=== PATIENT | female | born 1995 | race Caucasian/White ===

== ENCOUNTER 2019-05-20 21:33 | Emergency (ER) | payer OTHER, SELFPAY ==
[2019-05-20 22:54] LABS: Absolute Lymphocytes (CBC) 1.9 K/uL (0.7-4.9); Basophils % 0.5 % (0-1.3); Eosinophils % 0.2 % (0-4.4); Hematocrit 39.7 % (36.0-45.0); Lymphocytes % 16.9 % (15.3-44.8); MPV 8.6 fL (7.6-11.3); Monocytes % 5.1 % (3.3-12.3); RBC Red Blood Cell Count 5.08 M/uL (3.86-4.86)
[2019-05-20 23:06] LABS: Protime INR 1.19
[2019-05-20 23:21] LABS: ALT/SGPT 18 U/L (12-78); AST/SGOT 13 U/L (15-37); Albumin 3.9 g/dL (3.4-5.0); Alkaline Phosphatase 69 U/L (45-117); BUN Blood Urea Nitrogen 14 mg/dL (7-18); Bicarbonate 24 mmol/L (21-32); Bilirubin Direct 0.1 mg/dL (0-0.2); Bilirubin Total 0.4 mg/dL (0.2-1.0); Glucose Level 102 mg/dL (74-106); Potassium 3.3 mmol/L (3.5-5.1); Protein, Total 8.4 g/dL (6.4-8.2); Sodium Level 141 mmol/L (136-145)
[2019-05-20 23:58] LABS: Urine Blood 2+ (NEG); Urine Glucose NEGATIVE (NEG); Urine Protein 1+ (NEG); Urine Specific Gravity >1.030 (1.005-1.030)
[2019-05-21 00:09] LABS: Barbiturates NEGATIVE (NEGATIVE); Benzodiazepines NEGATIVE (NEGATIVE); Cocaine NEGATIVE (NEGATIVE); METHAMPHETAM NEGATIVE (NEGATIVE); Methadone NEGATIVE (NEGATIVE); Opiates NEGATIVE (NEGATIVE); Phencyclidine NEGATIVE (NEGATIVE); THC Cannibis NEGATIVE (NEGATIVE)
--- NOTE | 2019-05-21 01:14 | EDPHYS ---
Physician Documentation [facility] Name: Rebecca Kirby Age: 23 yrs Sex: Female : 1995 Arrival Date: 05/20/2019 Time: 21:37 Bed 18 Private MD: Mckinley Haider M ED Physician Malcolm Brown HPI: 05/20 22:05 This 23 yrs old Female presents to ER via Ambulatory with complaints of pm1 Depression, Anxiety, Suicidal Ideation. 22:05 The patient presents to the emergency department with anxiety, depression, suicide pm1 ideation, and the patient has a plan, to jump from a height into water. Onset: The symptoms/episode began/occurred 3 month(s) ago, and became worse 3 day(s) ago. Past psychiatric history: Psychiatric medications include: none, the patient has had a prior suicide gesture, where the patient took pills/meds, about three months ago in an attempt to harm/kill herself, the patient does not have a previous inpatient psychiatric history. Associated signs and symptoms: Pertinent positives; anxiety, depression, suicide ideation, Pertinent negatives: abdominal pain, chest pain, hallucinations, homicidal ideation, paranoia, shortness of breath, substance abuse. Severity of symptoms: in the emergency department the symptoms are worse. The patient has not recently seen a physician. Patient with suicidal ideation and plan to jump of a bridge into water and she does not know how to swim. 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 - Social history:: Smoking status: Patient/guardian denies using tobacco. - Ebola Screening: : Patient denies travel to an Ebola-affected area in the 21 days before illness onset. ROS: 22:05 Constitutional: Negative for fever, chills, and weight loss, Eyes: Negative for injury, pm1 pain, redness, and discharge, ENT: Negative for injury, pain, and discharge, Neck: Negative for injury, pain, and swelling, Cardiovascular: Negative for chest pain, palpitations, and edema, Respiratory: Negative for shortness of breath, cough, wheezing, and pleuritic chest pain, Abdomen/GI: Negative for abdominal pain, nausea, vomiting, diarrhea, and constipation, Back: Negative for injury and pain, : Negative for injury, bleeding, discharge, and swelling, MS/Extremity: Negative for injury and deformity, Skin: Negative for injury, rash, and discoloration, Neuro: Negative for headache, weakness, numbness, tingling, and seizure. 22:05 Psych: Positive for anxiety, depression, suicidal ideation, Negative for drug dependence, alcohol dependence, auditory hallucinations, visual hallucinations, homicidal ideation. Exam: 22:05 Constitutional: This is a well developed, well nourished patient who is awake, alert, pm1 and in no acute distress. Head/Face: Normocephalic, atraumatic. Eyes: Pupils equal round and reactive to light, extra-ocular motions intact. Lids and lashes normal. Conjunctiva and sclera are non-icteric and not injected. Cornea within normal limits. Periorbital areas with no swelling, redness, or edema. ENT: Nares patent. No nasal discharge, no septal abnormalities noted. Tympanic membranes are normal and external auditory canals are clear. Oropharynx with no redness, swelling, or masses, exudates, or evidence of obstruction, uvula midline. Mucous membranes moist. Neck: Trachea midline, no thyromegaly or masses palpated, and no cervical lymphadenopathy. Supple, full range of motion without nuchal rigidity, or vertebral point tenderness. No Meningismus. Chest/axilla: Normal chest wall appearance and motion. Nontender with no deformity. No lesions are appreciated. Cardiovascular: Regular rate and rhythm with a normal S1 and S2. No gallops, murmurs, or rubs. Normal PMI, no JVD. No pulse deficits. Respiratory: Lungs have equal breath sounds bilaterally, clear to auscultation and percussion. No rales, rhonchi or wheezes noted. No increased work of breathing, no retractions or nasal flaring. Abdomen/GI: Soft, non-tender, with normal bowel sounds. No distension or tympany. No guarding or rebound. No evidence of tenderness throughout. Back: No spinal tenderness. No costovertebral tenderness. Full range of motion. Skin: Warm, dry with normal turgor. Normal color with no rashes, no lesions, and no evidence of cellulitis. MS/ Extremity: Pulses equal, no cyanosis. Neurovascular intact. Full, normal range of motion. 22:05 Neuro: Orientation: is normal, Motor: is normal, moves all fours, Gait: is steady, at a normal pace, without difficulty. 22:05 Psych: Behavior/mood is depressed, Affect is flat, Oriented to person, place, time, Delusions/hallucinations are not present. Vital Signs: 21:47 BP 150 / 82; Pulse 108; Resp 20; Temp 98.2; Pulse Ox 98% on R/A; Height 5 ft. 9 in. aj1 (175.26 cm) (R); Pain 0/10; 05/21 01:21 BP 130 / 75; Pulse 98; Resp 18; Temp 98.7; Pulse Ox 97% ; Pain 0/10; cm6 03:47 BP 117 / 67; Pulse 84; Resp 18; Temp 98.3; Pulse Ox 99% ; Pain 0/10; cm6 07:47 BP 125 / 66; Pulse 90; Resp 18; Temp 98.2(O); Pulse Ox 100% on R/A; mh5 11:50 BP 123 / 69; Pulse 76; Resp 18; Temp 98.0(O); Pulse Ox 99% on R/A; mh5 MDM: 05/20 21:53 Patient medically screened. pm1 23:23 Data reviewed: vital signs. Data interpreted: Pulse oximetry: on room air is 98 %. pm1 Interpretation: normal. 05/21 00:56 ED course: [facility] present to evaluate patient. pm1 01:12 Counseling: I had a detailed discussion with the patient and/or guardian regarding: the pm1 historical points, exam findings, and any diagnostic results supporting the discharge/admit diagnosis, lab results, the need to transfer to another facility, [facility] does not immediately have the required specialist. 11:44 ED course: Talked with [facility] Psychiatric department who accepted to see patient. jr8 Doc-Doc completed. Patient remains cooperative. Still depressed and with SI. 05/20 22:02 Order name: Acetaminophen pm1 05/20 22:02 Order name: Basic Metabolic Panel pm1 05/20 22:02 Order name: CBC with Diff; Complete Time: 23:17 pm05/20 22:02 Order name: ETOH Level; Complete Time: 23:17 pm05/20 22:02 Order name: Hepatic Function 05/20 22:02 Order name: PT-INR; Complete Time: 23:17 pm05/20 22:02 Order name: Ptt, Activated; Complete Time: 23:17 pm05/20 22:02 Order name: Salicylate; Complete Time: 00:31 pm05/20 22:02 Order name: Urine Drug Screen; Complete Time: 00:31 pm05/20 22:03 Order name: Acetaminophen Level; Complete Time: 23:35 EDMS 05/20 22:03 Order name: Basic Metabolic Panel; Complete Time: 23:35 EDMS 05/20 22:03 Order name: Liver (Hepatic) Function; Complete Time: 23:35 EDMS 05/20 23:56 Order name: Urine Dipstick--Ancillary (enter results) 05/20 23:56 Order name: Urine --Ancillary (enter results); Complete Time: 00:31 [facility] 05/20 22:02 Order name: Urine Test (obtain specimen); Complete Time: 00:23 pm05/20 22:02 Order name: EKG; Complete Time: 22:04 pm05/20 22:02 Order name: EKG - Nurse/Tech; Complete Time: 22:51 pm05/20 22:02 Order name: IV Saline Lock; Complete Time: 22:51 pm05/20 22:02 Order name: Labs collected and sent; Complete Time: 22:51 pm05/20 22:02 Order name: Urine Dipstick-Ancillary (obtain specimen); Complete Time: 00:23 pm05/20 23:56 Order name: Urine Dipstick-Ancillary; Complete Time: 00:31 EDMS 05/21 06:14 Order name: Diet Regular; Complete Time: 06:15 jd3 05/21 09:48 Order name: Diet Regular; Complete Time: 09:50 mh5 Administered Medications: 12:00 Drug: Potassium Chloride 20 mEq Route: PO; bp 12:07 Follow up: Response: No adverse reaction bp Disposition: 05/21/19 01:13 Transfer ordered to [facility]. Diagnosis is Suicidal ideations. - Reason for transfer: Higher level of care. - Accepting physician is Dr. Atwood. - Condition is Stable. - Problem is new. - Symptoms have improved. Signatures: Dispatcher [employer] EDMS Jessica Sebastian RN RN aj1 Sancho Mann PA PA jr8 Riccardo Ontiveros, TRANSPORT COORDINATOR TRANSPORT COORDINATOR pm1 Javy Romero RN RN bp Corrections: (The following items were deleted from the chart) 11:45 11:44 ED course: Talked with [facility] Psychiatric department who accepted to see jr8 patient. Doc-Doc completed . jr8 12:14 01:13 05/21/2019 01:13 Transfer ordered to Psych Facility. Diagnosis is Suicidal jr8 ideations. Reason for transfer: Higher level of care. Accepting physician is Psychiatrist. Condition is Stable. Problem is new. Symptoms have improved. pm1 13:55 12:14 05/21/2019 01:13 Transfer ordered to Psych Facility. Diagnosis is Suicidal bp ideations. Reason for transfer: Higher level of care. Accepting physician is Dr. Atwood. Condition is Stable. Problem is new. Symptoms have improved. jr8
--- NOTE | 2019-05-21 01:14 | ER ---
Nurse's Notes [facility] Name: Rebecca Kirby Age: 23 yrs Sex: Female : 1995 Arrival Date: 05/20/2019 Time: 21:37 Bed 18 Private MD: Mckinley Haider M Diagnosis: Suicidal ideations Presentation: 05/20 21:41 Presenting complaint: Patient states: "I've been having suicidal thoughts lately and I aj1 feel like acting on them. I told my mom and she told me to come here" Patient reports that she has a plan, states that she can't swim and she would jump off a bridge into deep water. Transition of care: patient was not received from another setting of care. Onset of symptoms was May 20, 2019. Risk Assessment: Do you want to hurt yourself or someone else? Patient reports desire/thoughts of hurting themselves or someone else. Provider notified. Initial Sepsis Screen: Does the patient meet any 2 criteria? No. Patient's initial sepsis screen is negative. Does the patient have a suspected source of infection? No. Patient's initial sepsis screen is negative. Care prior to arrival: None. 21:41 Method Of Arrival: Ambulatory aj1 21:41 Acuity: TRAE 2 aj1 Triage Assessment: 21:47 General: Appears in no apparent distress. uncomfortable, Behavior is calm, cooperative, aj1 appropriate for age. Pain: Denies pain. Neuro: Level of Consciousness is awake, alert, obeys commands. Cardiovascular: Patient's skin is warm and dry. Respiratory: Airway is patent Respiratory effort is even, unlabored, Respiratory pattern is regular, symmetrical. 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 - Social history:: Smoking status: Patient/guardian denies using tobacco. - Ebola Screening: : Patient denies travel to an Ebola-affected area in the 21 days before illness onset. Screenin/01 00:18 Abuse screen: Denies threats or abuse. Nutritional screening: No deficits noted. jd3 Tuberculosis screening: No symptoms or risk factors identified. Fall Risk IV access (20 points). Ambulatory Aid- None/Bed Rest/Nurse Assist (0 pts). Gait- Normal/Bed Rest/Wheelchair (0 pts) Mental Status- Oriented to own ability (0 pts). Total Multani Fall Scale indicates No Risk (0-24 pts). Assessment: 05/20 21:45 Reassessment: Patient states hx of "cutting" on wrists and thighs, last done a couple lp1 months ago; States hx of self-harm, "About 3 months ago, I tried to overdose on Benadryl, but I didn't tell anyone about it", patient stated after asking mother to step out of room. 21:50 General: Appears in no apparent distress. comfortable, Behavior is calm, cooperative, jd3 appropriate for age, Reports suicidal thoughts. Pain: Denies pain. Neuro: Level of Consciousness is awake, alert, obeys commands, Oriented to person, place, time, situation. Cardiovascular: Denies chest pain, Capillary refill < 3 seconds Patient's skin is warm and dry. Respiratory: Airway is patent Respiratory effort is even, unlabored, Respiratory pattern is regular, symmetrical, Denies shortness of breath. GI: No signs and/or symptoms were reported involving the gastrointestinal system. : No signs and/or symptoms were reported regarding the genitourinary system. EENT: No signs and/or symptoms were reported regarding the EENT system. Derm: Skin is intact, Skin is dry, Skin is normal, Skin temperature is warm. Musculoskeletal: Circulation, motion, and sensation intact. Range of motion: intact in all extremities. 22:30 Reassessment: Patient appears in no apparent distress at this time. No changes from jd3 previously documented assessment. Patient and/or family updated on plan of care and expected duration. Pain level reassessed. Patient is alert, oriented x 3, equal unlabored respirations, skin warm/dry/pink. family at bedside. 23:30 Reassessment: Patient appears in no apparent distress at this time. Patient and/or jd3 family updated on plan of care and expected duration. Pain level reassessed. Patient is alert, oriented x 3, equal unlabored respirations, skin warm/dry/pink. awaiting results. 07/01 00:18 Reassessment: Patient appears in no apparent distress at this time. Patient and/or jd3 family updated on plan of care and expected duration. Pain level reassessed. Patient is alert, oriented x 3, equal unlabored respirations, skin warm/dry/pink. belongings other than wallet and shoes sent home with family. pt resting in bed. denies pain. 00:39 Reassessment: [facility] at bedside. jd3 01:00 Reassessment: Patient appears in no apparent distress at this time. Patient and/or jd3 family updated on plan of care and expected duration. Pain level reassessed. Patient is alert, oriented x 3, equal unlabored respirations, skin warm/dry/pink. pt in bed with no signs of distress, [facility] [employer] representative at bedside. Patient denies pain at this time. 02:43 Reassessment: Patient appears in no apparent distress at this time. Patient and/or jd3 family updated on plan of care and expected duration. Pain level reassessed. Patient is alert, oriented x 3, equal unlabored respirations, skin warm/dry/pink. pt resting in bed, watching TV. no family or friends at bedside currently. awaiting an accepting facility. Patient denies pain at this time. 03:00 Reassessment: Patient appears in no apparent distress at this time. Patient and/or jd3 family updated on plan of care and expected duration. Pain level reassessed. Patient is alert, oriented x 3, equal unlabored respirations, skin warm/dry/pink. pt's head of bead lowered. pt resting in bed with even and unlabored respirations. trash from meal cleaned from room. Patient denies pain at this time. 04:00 Reassessment: Patient appears in no apparent distress at this time. Patient and/or jd3 family updated on plan of care and expected duration. Pain level reassessed. Patient is alert, oriented x 3, equal unlabored respirations, skin warm/dry/pink. pt resting in bed with eyes closed. even and unlabored respirations. 05:00 Reassessment: Patient appears in no apparent distress at this time. Patient and/or jd3 family updated on plan of care and expected duration. Pain level reassessed. Patient is alert, oriented x 3, equal unlabored respirations, skin warm/dry/pink. pt resting in bed watching TV. even and unlabored respirations, denies pain. awaiting approval from a psych facility. Patient denies pain at this time. 06:00 Reassessment: Patient appears in no apparent distress at this time. Patient and/or jd3 family updated on plan of care and expected duration. Pain level reassessed. Patient is alert, oriented x 3, equal unlabored respirations, skin warm/dry/pink. resting in bed with eyes closed, with even and unlabored respirations. bed rails up, no signs of distress noted at this time. 07:00 Reassessment: RECD REPORT FROM [facility] LEACH. 23YO WF P/W SI AND ANXIETY. ALL CURRENT bp ORDERS COMPLETED, TRANSFER PENDING. SITTER AT [facility]. 11:29 Reassessment: REPORT TO CINDY LEACH AT [facility], [id number]. DOC 2 DOC REPORT PENDING. bp 13:53 Reassessment: [facility] FOR TRANSPORT. PT HERBERT. bp Psych: 05/20 21:50 Subjective: Patient's mood is sad, Delusions are denied, Hallucinations are denied jd3 Having thoughts of suicide. Plan for suicide is jump off a bridge and drown in water. Objective: Patient is cooperative, Speech is normal, Affect is appropriate. Interventions: Removed personal items and placed in bag. Patient placed in hospital gown. Searched person for dangerous items. Urine collected and sent for urine drug test. Belonging list filled out. Suicide Risk Assessment: Sad Person Scale: Sex of patient: Female: Score 0 points. Age of patient: Score 1 point if patient 15-34. Depression: Score 1 point if signs of depression are present. Previous Attempt: Score 1 point if patient has previously attempted suicide. Substance Abuse: Score 0 point if patient does not abuse alcohol or drugs. Rational Thinking: Score 0 point if patient has rational thinking. Social Support: Score 0 if social support is present/available. Organized Plan: Score 1 point if patient had a plan in place. Relationship: Score 1 point if patient is , , , or for a single male Chronic Sickness: Score 0 point if patient does not have a chronic illness, debilitating, or severe disorder. TOTAL POINTS: If total points are 5-6, proposed clinical action is to strongly consider hospitalization, depending upon confidence in the follow-up arrangement. Implement suicide precautions. Safety Checks: Personal items have been removed. Door is open. Visitors are present. Pt denies substance abuse. 05/21 13:54 Commitment: Patient will be a voluntary commitment. bp Vital Signs: 05/20 21:47 BP 150 / 82; Pulse 108; Resp 20; Temp 98.2; Pulse Ox 98% on R/A; Height 5 ft. 9 in. aj1 (175.26 cm) (R); Pain 0/10; 05/21 01:21 BP 130 / 75; Pulse 98; Resp 18; Temp 98.7; Pulse Ox 97% ; Pain 0/10; cm6 03:47 BP 117 / 67; Pulse 84; Resp 18; Temp 98.3; Pulse Ox 99% ; Pain 0/10; cm6 07:47 BP 125 / 66; Pulse 90; Resp 18; Temp 98.2(O); Pulse Ox 100% on R/A; mh5 11:50 BP 123 / 69; Pulse 76; Resp 18; Temp 98.0(O); Pulse Ox 99% on R/A; mh5 ED Course: 05/20 21:37 Patient arrived in ED. do 21:37 Mckinley Haider MD is Private Physician. do 21:44 Triage completed. aj1 21:47 Arm band placed on Patient placed in an exam room. aj1 21:50 Safety checks: Items removed: yes. Door open/sign placed on door: yes. Family/friend cm6 present: yes. Sitter present: Yes. 21:50 Patient has correct armband on for positive identification. Placed in gown. Bed in low jd3 position. Call light in reach. Side rails up X 1. Adult w/ patient. 21:53 Riccardo Ontiveros NP is PHCP. pm1 21:53 Malcolm Brown MD is Attending Physician. pm1 22:15 Safety checks: Items removed: yes. Door open/sign placed on door: yes. Family/friend cm6 present: yes. Sitter present: Yes. 22:30 Safety checks: Items removed: yes. Door open/sign placed on door: yes. Family/friend cm6 present: yes. Sitter present: Yes. 22:45 Safety checks: Items removed: yes. Door open/sign placed on door: yes. Family/friend cm6 present: yes. Sitter present: Yes. 22:50 Dariel Manley RN is Primary Nurse. jd3 23:00 Safety checks: Items removed: yes. Door open/sign placed on door: yes. Family/friend cm6 present: yes. Sitter present: Yes. 23:15 Safety checks: Items removed: yes. Door open/sign placed on door: yes. Family/friend cm6 present: yes. Sitter present: Yes. 23:30 Safety checks: Items removed: yes. Door open/sign placed on door: yes. Family/friend cm6 present: no. Sitter present: Yes. 23:45 Safety checks: Items removed: Door open/sign placed on door: yes. Family/friend cm6 present: no. Sitter present: Yes. 05/21 00:00 Safety checks: Items removed: Door open/sign placed on door: yes. Family/friend cm6 present: no. Sitter present: Yes. 00:15 Safety checks: Items removed: yes. Door open/sign placed on door: yes. Family/friend cm6 present: no. Sitter present: Yes. 00:30 Safety checks: Items removed: yes. Door open/sign placed on door: yes. Family/friend cm6 present: no. Sitter present: Yes. 00:45 Safety checks: Items removed: yes. Door open/sign placed on door: yes. Family/friend cm6 present: no. Sitter present: Yes. 01:00 Safety checks: Items removed: Door open/sign placed on door: yes. Family/friend cm6 present: no. Sitter present: Yes. 01:15 Safety checks: Items removed: yes. Door open/sign placed on door: yes. Family/friend cm6 present: no. Sitter present: Yes. 01:30 Safety checks: Items removed: yes. Door open/sign placed on door: yes. Family/friend cm6 present: no. Sitter present: Yes. 01:45 Safety checks: Items removed: yes. Door open/sign placed on door: yes. Family/friend cm6 present: no. Sitter present: Yes. 02:00 Safety checks: Items removed: yes. Door open/sign placed on door: yes. Family/friend cm6 present: no. Sitter present: Yes. 02:15 Safety checks: Items removed: yes. Door open/sign placed on door: yes. Family/friend cm6 present: no. Sitter present: Yes. 02:30 Safety checks: Items removed: yes. Door open/sign placed on door: yes. Family/friend cm6 present: no. Sitter present: Yes. 02:45 Safety checks: Items removed: yes. Door open/sign placed on door: yes. Family/friend cm6 present: no. Sitter present: Yes. 03:00 Safety checks: Items removed: yes. Door open/sign placed on door: yes. Family/friend cm6 present: no. Sitter present: Yes. 03:15 Safety checks: Items removed: yes. Door open/sign placed on door: yes. Family/friend cm6 present: no. Sitter present: Yes. 03:30 Safety checks: Items removed: yes. Door open/sign placed on door: yes. Family/friend cm6 present: no. Sitter present: Yes. 03:45 Safety checks: Items removed: yes. Door open/sign placed on door: yes. Family/friend cm6 present: no. Sitter present: Yes. 04:00 Safety checks: Items removed: yes. Door open/sign placed on door: yes. Family/friend cm6 present: no. Sitter present: Yes. 04:15 Safety checks: Items removed: yes. Door open/sign placed on door: yes. Family/friend cm6 present: no. Sitter present: Yes. 04:30 Safety checks: Items removed: yes. Door open/sign placed on door: yes. Family/friend cm6 present: no. Sitter present: Yes. 04:45 Safety checks: Items removed: yes. Door open/sign placed on door: yes. Family/friend cm6 present: no. Sitter present: Yes. 05:00 Safety checks: Items removed: yes. Door open/sign placed on door: yes. Family/friend cm6 present: no. Sitter present: Yes. 05:15 Safety checks: Items removed: yes. Door open/sign placed on door: yes. Family/friend cm6 present: no. Sitter present: Yes. 05:30 Safety checks: Items removed: yes. Door open/sign placed on door: yes. Family/friend cm6 present: no. Sitter present: Yes. 05:45 Safety checks: Items removed: yes. Door open/sign placed on door: yes. Family/friend cm6 present: no. Sitter present: Yes. 06:00 Safety checks: Items removed: yes. Door open/sign placed on door: yes. Family/friend cm6 present: no. Sitter present: Yes. 06:15 Safety checks: Items removed: yes. Door open/sign placed on door: yes. Family/friend cm6 present: no. Sitter present: Yes. 06:30 Safety checks: Items removed: yes. Door open/sign placed on door: yes. Family/friend cm6 present: no. Sitter present: Yes. 06:45 Safety checks: Items removed: yes. Door open/sign placed on door: yes. Family/friend cm6 present: no. Sitter present: Yes. 06:58 Safety checks: Items removed: yes. Door open/sign placed on door: yes. Family/friend cm6 present: no. Sitter present: Yes. 07:00 Safety checks: Items removed: yes. Door open/sign placed on door: yes. Family/friend mh5 present: no. Sitter present: Yes. 07:10 Warm blanket given. 5 07:15 Safety checks: Items removed: yes. Door open/sign placed on door: yes. Family/friend mh5 present: no. Sitter present: Yes. Safety checks: Items removed: yes. Door open/sign placed on door: yes. Family/friend present: no. Sitter present: Yes. 07:36 Diet: Patient given ice chips. Patient given juice. mh5 07:45 Safety checks: Items removed: yes. Door open/sign placed on door: yes. Family/friend mh5 present: no. Sitter present: Yes. 08:00 Safety checks: Items removed: yes. Door open/sign placed on door: yes. Family/friend mh5 present: no. Sitter present: Yes. Diet: Patient given a regular meal tray. 08:00 Inserted saline lock: 20 gauge in right antecubital area, using aseptic technique. mh5 PLACED BY CLEOPATRA LEACH. 08:15 Safety checks: Items removed: yes. Door open/sign placed on door: yes. Family/friend mh5 present: no. Sitter present: Yes. 08:30 Safety checks: Items removed: yes. Door open/sign placed on door: yes. Family/friend mh5 present: no. Sitter present: Yes. Oral care given. Bath given. Linen changed. WATCHING TV. 08:45 Safety checks: Items removed: yes. Door open/sign placed on door: yes. Family/friend mh5 present: no. Sitter present: Yes. 09:00 Safety checks: Items removed: yes. Door open/sign placed on door: yes. Family/friend mh5 present: no. Sitter present: Yes. 09:00 Urine Dipstick--Ancillary (enter results) Sent. 5 09:01 Acetaminophen Sent. 5 09:02 Basic Metabolic Panel Sent. 5 09:15 Safety checks: Items removed: yes. Door open/sign placed on door: yes. Family/friend mh5 present: no. Sitter present: Yes. 09:21 Diet: Patient given ice chips. Patient given juice. 5 09:23 Hepatic Function Sent. [facility] 09:30 Safety checks: Items removed: yes. Door open/sign placed on door: yes. Family/friend mh5 present: no. Sitter present: Yes. 09:45 Safety checks: Items removed: yes. Door open/sign placed on door: yes. Family/friend mh5 present: no. Sitter present: Yes. 10:00 Safety checks: Items removed: yes. Door open/sign placed on door: yes. Family/friend mh5 present: no. Sitter present: Yes. 10:15 Safety checks: Items removed: yes. Door open/sign placed on door: yes. Family/friend mh5 present: no. Sitter present: Yes. 10:30 Spoke to Cindy at [facility] she is on their waiting list but there are no beds ag available at this moment. 10:30 Safety checks: Items removed: yes. Door open/sign placed on door: yes. Family/friend mh5 present: no. Sitter present: Yes. 10:37 Carolyn [facility] said they are at psych capacity no beds available at this moment. ag 10:45 Safety checks: Items removed: yes. Door open/sign placed on door: yes. Family/friend mh5 present: no. Sitter present: Yes. 11:00 Safety checks: Items removed: yes. Door open/sign placed on door: yes. Family/friend mh5 present: no. Sitter present: Yes. 11:07 Spoke with Serg at [facility] they have no beds available. Sheri with [facility] the patient in on a waiting list no beds available. 11:15 Safety checks: Items removed: yes. Door open/sign placed on door: yes. Family/friend mh5 present: no. Sitter present: Yes. 11:15 Barb with [facility] no beds available. Hoda with [facility] there ag are no beds available. 11:15 [place] [facility] [place] ag 11:30 Safety checks: Items removed: yes. Door open/sign placed on door: yes. Family/friend mh5 present: no. Sitter present: Yes. 11:40 Diet: Patient given a regular meal tray. mh5 11:45 Safety checks: Items removed: yes. Door open/sign placed on door: yes. Family/friend mh5 present: no. Sitter present: Yes. 11:51 Safety checks: Items removed: yes. Door open/sign placed on door: yes. Family/friend mh5 present: no. Sitter present: Yes. 12:00 Safety checks: Items removed: yes. Door open/sign placed on door: yes. Family/friend ap present: no. Sitter present: Yes. 12:15 Safety checks: Items removed: yes. Door open/sign placed on door: yes. Family/friend ap present: no. Sitter present: Yes. 12:30 Safety checks: Items removed: yes. Door open/sign placed on door: yes. Family/friend ap present: yes. Sitter present: Yes. 12:45 Safety checks: Items removed: yes. Door open/sign placed on door: yes. Family/friend ap present: yes. Family/friends encouraged to stay with patient. Sitter present: Yes. Safety checks:. 12:55 No provider procedures requiring assistance completed. IV discontinued, intact, bp bleeding controlled, No redness/swelling at site. Pressure dressing applied. 13:00 Safety checks: Items removed: yes. Door open/sign placed on door: yes. Family/friend ap present: yes. Sitter present: Yes. 13:15 Safety checks: Items removed: yes. Door open/sign placed on door: yes. Family/friend ap present: yes. Sitter present:. 13:30 Safety checks: Items removed: yes. Door open/sign placed on door: yes. Family/friend ap present: no. Sitter present: Yes. 13:45 Safety checks: Items removed: yes. Door open/sign placed on door: yes. Family/friend ap present: no. Sitter present: Yes. Safety checks: Items removed:. Administered Medications: 12:00 Drug: Potassium Chloride 20 mEq Route: PO; bp 12:07 Follow up: Response: No adverse reaction bp Outcome: 01:13 ER care complete, transfer ordered by MD. pm1 13:54 Transferred by ground EMS Transfer form completed. Note: [facility] bp 13:54 Condition: stable 13:54 Instructed on the need for transfer. 13:55 Patient left the ED. bp Signatures: Jessica Sebastian RN RN aj1 Tricia Marcano RN RN lp1 Emmanuel, Lis Navarro, Lis Inessa Alba Patrick, KEVYN [employer] pm1 Velma Roque Dariel Mena RN RN jJavy Saleem RN RN bp Mack, Candace cm6 Corrections: (The following items were deleted from the chart) 00:22 0630 22:50 Interventions: Patient reassessed during use of restraints. Patient is jd3 physically safe. jd3 05/21 00:22 00:22 Interventions: Patient reassessed during use of restraints. Patient is physically jd3 safe. jd3 02:44 02:43 Reassessment: Patient appears in no apparent distress at this time. Patient jd3 and/or family updated on plan of care and expected duration. Pain level reassessed. Patient is alert, oriented x 3, equal unlabored respirations, skin warm/dry/pink. pt resting in bed, watching TV. no family or friends at bedside currently. awaiting an accepting facility. jd3 02:57 05/20 23:30 Safety checks: Items removed: yes. Door open/sign placed on door: yes. cm6 Family/friend present: yes. Sitter present: Yes. cm6 05/21 02:58 06 23:45 Safety checks: Items removed: yes. Door open/sign placed on door: yes. cm6 Family/friend present: yes. Sitter present: Yes. cm6 05/21 03:03 00:00 Safety checks: Items removed: Door open/sign placed on door: yes. Family/friend cm6 present: yes. Sitter present: Yes. cm6 03:03 00:15 Safety checks: Items removed: yes. Door open/sign placed on door: yes. cm6 Family/friend present: yes. Sitter present: Yes. cm6 03: 00:30 Safety checks: Items removed: Door open/sign placed on door: yes. Family/friend cm6 present: yes. Sitter present: Yes. cm6 03: 00:45 Safety checks: Items removed: yes. Door open/sign placed on door: yes. cm6 Family/friend present: yes. Sitter present: Yes. cm6 03:03 01:00 Safety checks: Items removed: yes. Door open/sign placed on door: yes. cm6 Family/friend present: yes. Sitter present: Yes. cm6 03: 01:15 Safety checks: Items removed: yes. Door open/sign placed on door: yes. cm6 Family/friend present: yes. Sitter present: Yes. cm6 03: 01:30 Safety checks: Items removed: yes. Door open/sign placed on door: yes. cm6 Family/friend present: yes. Sitter present: Yes. cm6 03:03 01:45 Safety checks: Items removed: yes. Door open/sign placed on door: yes. cm6 Family/friend present: yes. Sitter present: Yes. cm6 03: 02:00 Safety checks: Items removed: yes. Door open/sign placed on door: yes. cm6 Family/friend present: yes. Sitter present: Yes. cm6 03:03 02:56 Safety checks: Items removed: yes. Door open/sign placed on door: yes. cm6 Family/friend present: cm6
--- NOTE | 2019-05-21 06:36 | EKG ---
Test Date: 2019-05-20 Test Time: 22:45:31 [place] [employer]: [place] MEASUREMENT RESULTS: Intervals: Rate: 77 AK: 166 QRSD: 90 QT: 360 QTc: 407 [place]: P: 53 AK: 166 QRS: 70 T: 33 INTERPRETIVE STATEMENTS: Normal sinus rhythm Normal ECG No previous ECG available for comparison Electronically Signed On 05-21-19 06:36:09 CDT by Robbin Loo
[2019-05-21] MEDS ORDERED: POTASSIUM 25 MEQ EFFERV TAB ONE (12:11)
== END 2019-05-21 13:55 ==
LOC: ER 21:33
DX: R45.851 Suicidal ideations (principal); F32.9 Major depressive disorder, single episode, unspecified
CPT/HCPCS: 36415; 80048; 80076; 80307; 80320; 80329; 81003; 81025; 85025; 85610; 85730; 93005; 99285

== ENCOUNTER 2023-06-30 23:49 | Emergency (ER) | payer OTHER, SELFPAY ==
--- OUTSIDE RECORDS SUMMARY | 2023-06-30 23:53 | XMS REPORT | Continuity of Care Document ---
:1995 Author Organization [facility] t Address [address] [facility]. [address] [place] [address] Care Team Providers Name Role Phone JOSHUA FRANKLIN Primary Care Physician Unavailable henry Attending Clinician Unavailable TOBY PATEL Attending Clinician Unavailable TALITA BELL Attending Clinician Unavailable SHANNON VERDUZCO Attending Clinician Unavailable Provider, Radha Temp Attending Clinician Unavailable Shannon Verduzco CNM Attending Clinician Doctor Unassigned, [place] Attending Clinician Unavailable Lab, Ang-Rm[facility]cl[facility] Attending Clinician Unavailable Arabella Talita LLAMAS Attending Clinician [phone] Haile Scanlon Attending Clinician HAILE CHAPPELL Attending Clinician Unavailable LORIN BARNES Attending Clinician Unavailable Lorin Loera Attending Clinician Juliana Kraft Attending Clinician [phone] Sana Rincon Attending Clinician Unavailable Tor Chinchilla Attending Clinician [phone] Juliana Kraft Unavailable [id number] Payers Payer Name Policy Type Policy Number Effective Date Expiration Date S ource Title X P [id number] 2021 2022 00:00:00 00:00:00 PATSY SPRINGER [id number] 2022 00:00:00 MEDICAID [facility] [id number] 2022 00:00:00 Problems Condition Condition Condition Status Onset Resolution Last Treating Co mments Source Name Details Category Date Date Treatment Clinician Date Obesity Obesity Disease Active Univers affecting affecting 1-08 [place] History of History of Disease Active U nivers anxiety anxiety 1-08 ity of and and 00:00: [place] depression depression 00 Me dical Branch Disease Active Uni vers related related 1-08 ity of nausea, nausea, 00:00: [place] antepartum antepartum 00 Me dical Branch Class 2 Class 2 Disease Active Univers severe severe 6-24 ity of obesity obesity 00:00: [place] due to due to 00 Medical excess excess Branch calories calories with with serious serious comorbidit comorbidit y and body y and body mass index mass index (BMI) of (BMI) of 36.0 to 36.0 to 36.9 in 36.9 in adult adult Screening Screening Disease Active Uni vers examinatio examinatio 4-08 it y of n for STD n for STD 00:00: [place] s (sexually (sexually 00 Medi valdez transmitte transmitte Br anch d disease) d disease) Encounter Encounter Disease Active 2020-11 Uni vers for for 0-12 ity of surveillan [place] ce of 00 Medical contracept contracept Br anch kylie pills kylie pills Tinea Condition Active 2021-07-07 Joy Kraft versicolor 07-06 16:08:47 Juliana Com joaquín 00:00: ty 00 Health ADHD Condition Active 2021-07-07 Joy Kraft 07-06 16:08:47 Juliana Communi 00:00: ty 00 Health Anxiety Condition Active 2021-07-07 Jordan Kraft depression 07-06 16:08:47 Juliana Com joaquín 00:00: ty 00 Health BMI Condition Active 2021-07-07 Joy Kraft 38.0-38.9 07-06 16:08:47 Juliana Comm uni 00:00: ty 00 Health Obesity Condition Active 2021-07-07 Jordan Kraft 16 16:08:47 Juliana Godoy 00:00: ty 00 Health BMI BMI Disease Active Univers 36.0-36.9, 36.0-36.9, 6-03 it y of adult adult 00:00: [place] 00 Medical Branch Encounter Encounter Disease Active Uni vers for other for other 01-25 ity of general general 00:00: [place] counseling counseling 00 Me dical or advice or advice Bran ch on on contracept contracept ion ion History of History of Disease Active U nivers PCOS PCOS 01-25 ity of 00:00: Medical Branch PCOS PCOS Disease Active Univers (polycysti (polycysti 2-16 it y of c ovarian c ovarian 00:[place] syndrome) syndrome) 00 [facility] Hirsutism Hirsutism Disease Active Uni vers - ity of 00:00: Medical Branch Abnormal Abnormal Disease Active Unive rs weight weight 9-17 ity of gain gain 00:00: [place] [facility] Branch Acanthosis Acanthosis Disease Active U nivers nigricans nigricans -17 ity of 00:00: [facility] Allergies, Adverse Reactions, Alerts Allergy Allergy Status Severity Reaction(s) Onset Inactive Treating Comm ents Source Name Type Date Date Clinician NO KNOWN Drug Active Univers ALLERGIE Class ity of S [facility] Social History Social Habit Start Date Stop Date Quantity Comments Source ASSERTION 2022-10-28 [facility] 00:00:00 [facility] History SDOH Alcohol Univ ersity of Frequency [facility] History SDOH Alcohol Univ ersity of Std Drinks [facility] History SDOH Alcohol Univ ersity of Binge [facility] Exposure to 2022-12-14 2022-12-24 Not sure [facility] SARS-CoV-2 (event) 00:00:00 10:59:00 [facility] Alcohol intake 2022-12-24 2022-12-24 Ex-drinker [facility] 00:00:00 00:00:00 (finding) [facility] Tobacco use and 2022-11-26 2022-11-26 Smokeless Universit y of exposure 00:00:00 00:00:00 tobacco non-user [facility] dical Branch PHQ2 Questionairre 2021-08-12 2021-08-12 [facility] Score 08:29:47 08:29:47 Health social history 2021-08-12 2021-08-12 reviewed today [facility] reviewed E&M 08:29:47 08:29:47 Health if the patient is 2021-08-12 2021-08-12 No [facility] using/has used a 08:29:47 08:29:47 Health vaping item, Current, Former, Never Used, Not asked assessment of health 2021-08-12 2021-08-12 Adequate [facility] Community literacy (NCQA [facility] 08:29:47 08:29:47 [facility] 2014 Standards, 3C10) is there any chance 2021-08-12 2021-08-12 No [facility] that you could be 08:29:47 08:29:47 Health ? drug use 2021-08-12 2021-08-12 Never [facility] ty 08:29:47 08:29:47 Health alcohol use 2021-08-12 2021-08-12 Currently [facility] ity 08:29:47 08:29:47 Health patient considered 2021-07-06 2021-07-06 No [facility] to be homeless 14:58:56 14:58:56 Health Alcohol Comment 2021-04-23 2021-04-23 rarely, less Univers ity of 00:00:00 00:00:00 than socially [facility] al Branch Sex Ass[birth year] At [birth year] Universit y of 00:00:00 00:00:00 [facility] Smoking Status Start Date Stop Date Source Never smoked tobacco [facility] [place] [facility] Medications Ordered Filled Start Stop Current Ordering Indication Dosage Frequency Signature Comments Components Source Medication Medication Date Date Medication? Clinician (SIG) Name Name Yes [id number] 1{packe Take 1 Univers vit 2-03 t} Packet by ity of 33-iron-fol 00:00[place] ic-dha 00 the Medical (SELECT-OB morning. Branc h + DHA) 29 mg iron-1 mg -250 mg combo pack No known 2023-0 No No known Unive rs medications 1-06 medication it y of 15:04: s [place] 12 Medical Branch No known 2022- No No known Unive rs medications -06 medication it y of 15:04: s [place] [id number] Medical Branch atomoxetine 2022- No Take by Un irish HCl 1-06 01-06 mouth. ity of (STRATTERA 15:04: 00:00 [place] ORAL) 09 :00 Medical Branch fluconazole 2021- No [id number] 150mg Take 1 Univers (DIFLUCAN) 7-15 07-16 tablet by ity of 150 mg 00:00: 04:59 mouth [place] tablet 00 :00 now for 1 Medical dose. Branch atomoxetine Yes Take by Uni vers HCl 6-24 mouth. ity of (STRATTERA 10:26: [place] ORAL) 06 Medical Branch norgestimat Yes [id number] 1{tbl} Take 1 Univers e-ethinyl 6-24 tablet by ity o f estradioL 00:00: mouth [place] (TRI-SPRINT 00 daily. Medica l EC) Branch 0.18/0.215/ 0.25 mg-35 mcg (28) tablet norgestimat 2022- No [id number] 1{tbl} Take 1 Univers e-ethinyl 6-24 -06 tablet by ity of estradioL 00:00: 00:00 mouth [place] (TRI-SPRINT 00 :00 daily. Medica l EC) Branch 0.18/0.215/ 0.25 mg-35 mcg (28) tablet (KETOCONAZO Yes Juliana BROWN) 2 % 9-22 Swapnil with 1 Communi SHAM 00:00: liberally ty 00 to skin Health once a day FOR FOUR WEEKS. LEAVE ON skin FOR FIVE MINUTES prior TO WASHING off (KETOCONAZO 2020- No Juliana 1 as Joy BROWN) 2 % 8-17 09-22 Swapnil directed Commu ni SHAM 00:00: 00:00 as ty 00 :00 directed Health once a day FOR FOUR WEEKS. LEAVE ON skin FOR FIVE MINUTES prior TO WASHING off WELLBUTRIN Yes Juliana Take 1 Joy virea SR 8-16 Swapnil tablet by Communi (BUPROPION 00:00: mouth ty HCL) 100 MG 00 twice a Healt h [id number] day (FLUCONAZOL Yes Juliana Take 2 L egacy E) 200 MG 8-16 Swapnil tablet by Com joaquín TABS 00:00: mouth once ty 00 a week Health (HYDROXYZIN Yes Juliana Take 0.5-1 [facility] E HCL) 25 8-16 Swapnil tablet by Com joaquín MG TABS 00:00: mouth once ty 00 a day as Health needed for anxiety WELLBUTRIN 1970-0 2020- No Legacy SR [id number] Communi (BUPROPION 00:00: 00:00 ty HCL) 100 MG 00 :00 Health [id number] Immunizations Ordered Filled Immunization Date Status Comments [facility] e Immunization Name Name Influenza Virus 2022-11-26 Completed Universit y of Vaccine Quad IM, 00:00:00 [place] Me dical Preserv and ABX Branch Free 6 MO-64 YRS Influenza Virus 2022-11-26 Completed Universit y of Vaccine Quad IM, 00:00:00 [place] Me dical Preserv and ABX Branch Free 6 MO-64 YRS Influenza Virus 2022-11-26 Completed Universit y of Vaccine Quad IM, 00:00:00 [place] Me dical Preserv and ABX Branch Free 6 MO-64 YRS Influenza Virus 2022-11-26 Completed Universit y of Vaccine Quad IM, 00:00:00 [place] Me dical Preserv and ABX Branch Free 6 MO-64 YRS Influenza Virus 2022-11-26 Completed Universit y of Vaccine Quad IM, 00:00:00 [place] Me dical Preserv and ABX Branch Free 6 MO-64 YRS Influenza Virus 2021-09-01 Completed Universit y of Vaccine Quad IM, 00:00:00 [place] Me dical Preserv and ABX Branch Free 6 MO-64 YRS Influenza Virus 2021-09-01 Completed Universit y of Vaccine Quad IM, 00:00:00 [place] Me dical Preserv and ABX Branch Free 6 MO-64 YRS Influenza Virus 2021-09-01 Completed Universit y of Vaccine Quad IM, 00:00:00 [place] Me dical Preserv and ABX Branch Free 6 MO-64 YRS Influenza Virus 2021-09-01 Completed Universit y of Vaccine Quad IM, 00:00:00 [place] Me dical Preserv and ABX Branch Free 6 MO-64 YRS Influenza Virus 2021-09-01 Completed Universit y of Vaccine Quad IM, 00:00:00 [place] Me dical Preserv and ABX Branch Free 6 MO-64 YRS Influenza Virus 2021-09-01 Completed Universit y of Vaccine Quad IM, 00:00:00 [place] Me dical Preserv and ABX Branch Free 6 MO-64 YRS Vital Signs Vital Name Observation Time Observation Value Comments Source Systolic blood 2022-12-24 17:00:00 125 mm[Hg] Univer sity of pressure [facility] Diastolic blood 2022-12-24 17:00:00 65 mm[Hg] Unive rsity of pressure [facility] Heart rate 2022-12-24 17:00:00 77 /min Universi ty of [facility] Body temperature 2022-12-24 17:00:00 36.61 Evy Univ ersity of [facility] Branch Respiratory rate 2022-12-24 17:00:00 17 /min Univ ersity of [facility] Body height 2022-12-24 17:00:00 175.3 cm Universi ty of [place] Medical [facility] Body weight 2022-12-24 17:00:00 119.614 kg Universi ty of [facility] Branch BMI 2022-12-24 17:00:00 38.94 kg/m2 Universi ty of [facility] Branch Systolic blood 2022-11-26 20:30:00 126 mm[Hg] Univer sity of pressure [facility] Branch Diastolic blood 2022-11-26 20:30:00 79 mm[Hg] Unive rsity of pressure [facility] Heart rate 2022-11-26 20:30:00 79 /min Universi ty of [place] [facility] Body temperature 2022-11-26 20:30:00 36.78 Evy Univ ersity of [facility] Branch Respiratory rate 2022-11-26 20:30:00 17 /min Univ ersity of [facility] Branch Body height 2022-11-26 20:30:00 175.3 cm Universi ty of [place] [facility] Body weight 2022-11-26 20:30:00 120.475 kg Universi ty of [place] [facility] BMI 2022-11-26 20:30:00 39.22 kg/m2 [facility] oxygen saturation, 2021-07-06 14:58:56 98 /min [facility] blood pressure, 2021-07-06 14:58:56 81 mm[Hg] [facility] diastolic Health blood pressure, 2021-07-06 14:58:56 128 mm[Hg] [facility] systolic Health respiratory rate E&M 2021-07-06 14:58:56 16 /min [facility] Health pulse rate 2021-07-06 14:58:56 73 /min [facility] temperature site 2021-07-06 14:58:56 oral [facility] Health temperature E&M 2021-07-06 14:58:56 98.3 [degF] [facility] weight E&M 2021-07-06 14:58:56 256.80 [lb_av] [facility] weight in kilograms 2021-07-06 14:58:56 116.73 kg L [facility] E& Health height in 2021-07-06 14:58:56 175.26 cm [facility] centimeters E&M Health Procedures Procedure Date / Time Performed Performing Clinician Sourc e [id number] CONSENT 2022-12-24 06:01:00 Doctor Unassigned, No Unive [facility] POCT URINALYSIS 2022-12-24 00:00:00 Shannon Verduzco [facility] FLU VACC ([id number]), 2022-11-26 22:46:01 [facility] 6 [facility]-64 [facility], .5ML, IM, Medical B ranch QUAD (FLUCELVAX) URINE CULTURE 2022-11-26 22:00:00 Shannon Verduzco [facility] CBC WITH DIFF 2022-11-26 21:45:00 Shannon Verduzco [facility] RUBELLA SCREEN IGG 2022-11-26 21:45:00 Shannon Verduzco Unive [facility] VZV ANTIBODY SCREEN 2022-11-26 21:45:00 Shannon Verduzco [facility] HEPATITIS B SURFACE 2022-11-26 21:45:00 Shannon Verduzco [facility] ANTIGEN [facility] HB ABO GROUPING 2022-11-26 21:45:00 Shannon Verduzco [facility] HIV 1/2 AG-AB WITH 2022-11-26 21:45:00 [facility] REFLEX [facility] GALV ONLY - SYPHILIS 2022-11-26 21:45:00 Shannon Verduzco [facility] IGG/IGM [facility] REPORT OF 2022-11-26 06:01:00 Doctor Unassigned, No [facility] Name [facility] POCT TEST 2022-11-26 00:00:00 Shannon Verduzco [facility] POCT URINALYSIS W/O 2022-11-26 00:00:00 Shannon Verduzco [facility] SPECIFIC GRAVITY [facility] Encounters Start End Encounter Admission Attending Care Care Encounter Source Date/Time Date/Time Type Type Clinicians Facility Department ID 2022-10-12 Outpatient [email or web address] [facility] [id number] [facility] 11:15:04 [id number] [facility] 2023-01-17 2023-01-17 Outpatient P [facility] [id number] Univers 08:00:00 08:00:00 [facility] 2023-01-03 2023-01-03 Outpatient P [facility] [id number] [facility] 11:[facility]22-[facility] 2022-12-31 Outpatient R AKINLARA [facility] [id number] Univers 10:30:00 10:30:00 TALITA pati o f [facility] 2022-12-24 2022-12-24 Outpatient R LUBA [facility] [id number] Univers 10:30:00 11:31:36 SHANNON [facility] 2022-12-24 2022-12-24 Routine Provider, Radha [facility] 1 .2.840.114 [id number] Univers 10:30:00 11:31:36 Shannon Verduzco PIPE INSTALLER 350.1.13. 10 ity of Visit [facility] [id number] Juan Jose as MATERNAL [phone] [facility] & CHILD [address] [place] [address] 2022-12-24 2022-12-24 Orders Doctor LEDBETTER [id number] Univers 00:00:00 00:00:00 Only Unassigned, SALIMA [id number] ity of [place] [facility] [id number] Juan Jose as [id number] [address] 2022-12-10 2022-12-10 Outpatient R ARABELLA, [facility] [id number] Univers 08:00:00 08:00:00 TALITA valenzuela [facility] 2022-12-03 2022-12-03 Outpatient [facility] [id number] Univers 08:30:00 09:09:07 TALITA rodríguez [facility] 2022-12-03 2022-12-03 [facility] 1.2.840. [id number] Univers 08:30:00 09:09:07 Visit Talita Bell PIPE INSTALLER 350.1.13. 10 ity of [facility] [id number] Juan Jose as MATERNAL [id number] [facility] & [address] 2022-11-26 2022-11-26 Initial Provider, Radha [facility] 1 .2.840.114 [id number] Univers 14:15:00 15:50:13 Shannon Verduzco PIPE INSTALLER 350.1.13. 10 ity of Visit [facility] [id number] Juan Jose as MATERNAL [id number] [facility] & CHILD [address] [place] [address] 2022-11-26 2022-11-26 Outpatient Roger VERDUZCO [facility] [id number] Univers 13:45:00 15:04:26 SHANNON krueger [facility] 2022-11-26 2022-11-26 Orders Doctor LEDBETTER 1.2.840.114 [id number] Univers 00:00:00 00:00:00 Only Unassigned, SALIMA [id number] ity of [place] [facility] [id number] Juan Jose as [phone] [address] 2022-11-19 2022-11-19 Outpatient [facility] [id number] Gautam 09:32:10 09:32:10 [address] [place] 2022-06-04 2022-06-04 Telephone [facility] 1.2.840.114 [id number] Univers 00:00:00 00:00:00 Talita Olivo PIPE INSTALLER [id number] ity of [facility] [id number] Juan Jose as MATERNAL [id number] [facility] & CHILD [address] [place] [address] 2022-06-04 2022-06-04 Telephone [facility] [id number] [facility] 00:00:00 00:00:00 Haile Duran PIPE INSTALLER [id number] ity of [facility] [id number] Juan Jose as MATERNAL [id number] [facility] & CHILD [address] [place] [address] 2022-05-14 2022-05-14 Office [facility] [id number] Univers 10:30:00 11:32:02 Visit Haile Duran PIPE INSTALLER [id number] ity of [facility] [id number] Juan Jose as MATERNAL [id number] [facility] & CHILD [address] [place] [address] 2022-05-14 2022-05-14 Outpatient R [facility] [id number] Univers 10:30:00 11:32:02 ROSHANNAHNDA ity o f [facility] 2022-05-14 2022-05-14 Outpatient [facility] [id number] Univers 10:30:00 10:30:00 ROSHANNAHNDA ity o f [facility] 2022-05-14 2022-05-14 Orders Doctor LEDBETTER 1.2.840.114 [id number] Univers 00:00:00 00:00:00 Only Unassigned, SALIMA [id number] ity of [place] [facility] [id number] Juan Jose as [phone] [address] 2022-05-11 2022-05-11 Outpatient R ARABELLA [facility] [id number] Univers 13:45:00 13:45:00 TALITA krueger o [facility] 2022-05-10 2022-05-10 Outpatient R MISTI [facility] [id number] Univers 10:30:00 10:30:00 HAILE krueger o [facility] 2022-05-10 2022-05-10 Outpatient R MISTI [facility] [id number] Univers 10:30:00 10:30:00 RUBIORachel krueger o [facility] 2022-03-01 2022-03-01 Telephone [facility] 1.2.840.114 [id number] [facility] 00:00:00 00:00:00 Talita Olivo PIPE INSTALLER 350.1.13.10 ity [place] [id number] Juan Jose as MATERNAL [phone] [facility] ical & CHILD [address] [place] [address] 2022-02-26 2022-02-26 Outpatient R [facility] [id number] Univers 09:15:00 09:55:06 TALITA manuelnahum o [facility] 2022-02-26 2022-02-26 Office [facility] [id number] Univers 09:15:00 09:55:06 Visit aTlita Olivo PIPE INSTALLER 350.1.13.10 ity [place] [id number] Juan Jose as MATERNAL [id number] [facility] ical & CHILD [address] [place] [address] 2022-02-26 2022-02-26 Outpatient R ARABELLA [facility] [id number] Univers 09:15:00 09:15:00 TALITA valenzuela [facility] 2021-11-10 2021-11-10 Outpatient Roger [facility] [id number] Univers 08:30:00 08:30:00 LORIN krueger [facility] 2021-11-10 2021-11-10 Telephone [facility] 1.2.840.114 [id number] Univers 00:00:00 00:00:00 Lorin Rashid PIPE INSTALLER [id number] it y of REGIONAL [id number] Juan Jose as MATERNAL [phone] [facility] & CHILD [address] [place] [address] 2021-11-09 2021-11-09 Office [facility] [id number] Univers 11:00:00 11:30:46 Visit Lorin Rashid PIPE INSTALLER 350.1.13.10 it y of REGIONAL [id number] Juan Jose as MATERNAL [id number] [facility] & CHILD [address] [place] [address] 2021-11-09 2021-11-09 Outpatient R [facility] [id number] Univers 11:00:00 11:30:46 LORIN krueger [facility] 2021-11-09 2021-11-09 Outpatient R [facility] [id number] Univers 11:00:00 11:00:00 LORIN krueger [facility] 2021-10-22 2021-10-22 Telephone [facility] 1.2.840.114 [id number] Univers 00:00:00 00:00:00 Lorin Rashid PIPE INSTALLER [id number] it y of REGIONAL [id number] Juan Jose as MATERNAL [id number] [facility] & CHILD [address] [place] [address] 2021-09-01 2021-09-01 Office [facility] [id number] Univers 08:12:09 08:46:54 Visit Lorin Rashid PIPE INSTALLER [id number] it y of REGIONAL [id number] Juan Jose as MATERNAL [id number] [facility] & CHILD [address] [place] [address] 2021-09-01 2021-09-01 Outpatient R [facility] [id number] Univers 08:15:00 08:15:00 LORIN krueger [facility] 2021-08-30 2021-08-30 Refill [facility] [id number] Univers 00:00:00 00:00:00 Lorin Rashid PIPE INSTALLER [id number] it y of [facility] [id number] Juan Jose as MATERNAL [id number] [facility] & [address] 2021-08-14 2021-08-14 Outpatient Roger [facility] [id number] Univers 10:15:00 10:15:00 LORIN krueger [facility] 2021-08-12 2021-08-13 Office Juliana Kraft [facility] En counter/ Legacy 00:00:00 00:00:00 Visit Sana Rincon [id number] [facility] [id number] [facility] 2021-07-24 2021-07-24 Outpatient Roger [facility] [id number] Univers 13:15:00 13:15:00 TALITA krueger o f [facility] 2021-07-23 2021-07-23 Outpatient Roger [facility] [id number] Univers 15:15:00 15:15:00 LORINGRADY krueger [facility] 2021-07-06 2021-07-07 Office Juliana Kraft [facility] En counter/ Legacy 00:00:00 00:00:00 Visit Tor Chinchilla [id number] [facility] Sana Rincon [id number] [facility] 2021-04-23 2021-04-23 Office [facility] [id number] Univers 08:02:27 09:12:37 Visit Lorin Rashid PIPE INSTALLER [id number] it y of [facility] [id number] Juan Jose as MATERNAL [id number] [facility] & CHILD [address] [place] [address] 2021-04-23 2021-04-23 Outpatient Roger [facility] [id number] Univers 08:15:00 08:15:00 LORIN krueger [facility] 2021-04-23 2021-04-23 Orders Doctor LEDBETTER [id number] Univers 00:00:00 00:00:00 Only Unassigned, SALIMA [id number] ity of [place] [facility] [id number] Juan Jose as [id number] [address] 2021-03-26 2021-03-26 Outpatient Roger B[facility]ES [facility] [id number] Univers 13:00:00 13:00:00 LORIN krueger [facility] 2021-02-26 2021-02-26 [facility] [id number] Univers 08:45:00 08:45:00 MERRILLNDA itnahum o f [facility] 2021-02-24 2021-02-24 [facility] [id number] Univers 08:15:00 08:15:00 [facility] Results Test Description Test Time Test Comments Results Result Comments Source POCT URINALYSIS W SPECIFIC GRAVITY 2022-12-24 17:04:00 Test Item Value Reference Range Interpretation Comme nts POCT U SP GRAV (test code = 3255) . 1.005-1.025 POCT PH U (test code = 3254) . 5-8 POCT U LEUK EST (test code = 3263) . Negative - Negative POCT U NIT (test code = 3262) . Negative - Negative POCT U PROT (test code = 3259) 1+ Negative - Negative POCT U GLU (test code = 3256) negative Negative - Negative POCT U KETONE (test code = 3258) . Negative - Negative POCT U UROBILI (test code = 3260) . 0.2-1 POCT U BILI (test code = 3261) . Negative - Negative POCT U BLD (test code = 3257) . Negative - Negative POCT U COLOR (test code = 3266) . POCT U APPEAR (test code = 3267) . [facility] WORK[facility], BLOOD [id number] 08:36:24 Test Item Value Reference Range Interpretation Comments ABO & RH (test code O POSITIVE Performe d at [facility] = 20) Laboratory Serv [facility] Blood [facility]3 [facility] s [id number] Free: [phone] A No. [id number] IAT (test code = Negative Performed a t [facility] 1185) Laboratory [facility] s [id number] Free: [phone] A No. [id number] [facility] ResourcesPOFL [id number] 20:41:00 Test Item Value Reference Range Interpretation Comments POCT PREG (test code = 1605) Positive On board controls acceptable with C Yes Line (test code = 3574) POCT PREG LOT # (test code = 3575) POCT PREG TEST DATE (test code = 3576) [facility] URINALYSIS W/O SPECIFIC [id number] 20:41:00 Test Item Value Reference Range Interpretation Comments POCT PH U (test code = 3254) 8 mg/dl 5-8 POCT U LEUK EST (test code = negative Negative - Negative 3263) POCT U NIT (test code = 3262) negative Negative - Negative POCT U PROT (test code = 3259) trace Negative - Negative POCT U GLU (test code = 3256) negative Negative - Negative POCT U KETONE (test code = 3258) negative Negative - Negative POCT U BLD (test code = 3257) negative Negative - Negative [facility] ResourcesH[facility] Qualitative [id number] 21:12:39 Test Item Value Reference Range Interpretation Comments HCG, Serum Qual (test code = HCG, Negative Serum Qual) Lot # (test code = Lot #) [id number] Expiration Dt (test code = 09/20/2020 N Expiration Dt) Neg Control (test code = Neg Negative Control) Pos Control (test code = Pos Positive Control) Internal QC (test code = Internal Acceptable QC) RPR [id number] 20:28:51 Test Item Value Reference Range Interpretation Comments RPR Qual (test code = RPR Qual) Non-Reactive Non-Reactive Reactive Control (test code = Reactive Reactive Control) Weak Reactive Control (test Weak Reactive code = Weak Reactive Control) Non-Reactive Control (test code Non-Reactive = Non-Reactive Control) Lot # (test code = Lot #) [id number] Expiration Dt (test code = 09.20.20 N Expiration Dt) Thyroid Stimulating [id number] 07:42:08 Test Item Value Reference Range Interpretation Comments TSH (test code = TSH) 2.890 mIU/mL 0.270-4.200 Comprehensive Metabolic [id number] 07:36:19 Test Item Value Reference Range Interpretation Comments Sodium Level (test code = Sodium 141.0 mmol/L 135.0-145.0 Level) Potassium Level (test code = 3.8 mmol/L 3.5-5.1 Potassium Level) Chloride Level (test code = 102 mmol/L 98-105 Chloride Level) CO2 (test code = CO2) 24 mmol/L 22-29 Anion Gap (test code = Anion 15 mmol/L 7-16 Gap) BUN (test code = BUN) 12.10 mg/dL 6.00-20.00 Creatinine Level (test code = 0.80 mg/dL 0.50-0.90 Creatinine Level) BUN/Creat Ratio (test code = 15 N BUN/Creat Ratio) Glucose Level (test code = 88 mg/dL 70-115 Glucose Level) Calcium Level (test code = 9.5 mg/dL 8.3-10.5 Calcium Level) Alk Phos (test code = Alk Phos) 65 U/L 35-104 Bilirubin Total (test code = 0.7 mg/dL 0.1-0.9 Bilirubin Total) Albumin Level (test code = 4.5 g/dL 3.5-5.2 Albumin Level) Protein Total (test code = 8.1 g/dL 6.4-8.3 Protein Total) ALT (test code = ALT) 13 U/L 1-33 AST (test code = AST) 15 U/L 1-32 Globulin (test code = Globulin) 3.6 g/dL 2.9-3.1 H A/G Ratio (test code = A/G 1.2 ratio N Ratio) Comprehensive Metabolic [id number] 07:36:19 Test Item Value Reference Range Interpretation Comments Sodium Level (test 141.0 mmol/L 135.0-145.0 code = Sodium Level) Potassium Level 3.8 mmol/L 3.5-5.1 (test code = Potassium Level) Chloride Level (test 102 mmol/L 98-105 code = Chloride Level) CO2 (test code = 24 mmol/L 22-29 CO2) Anion Gap (test code 15 mmol/L 7-16 = Anion Gap) BUN (test code = 12.10 mg/dL 6.00-20.00 BUN) Creatinine Level 0.80 mg/dL 0.50-0.90 (test code = Creatinine Level) BUN/Creat Ratio 15 N (test code = BUN/Creat Ratio) Glucose Level (test 88 mg/dL 70-115 code = Glucose Level) Calcium Level (test 9.5 mg/dL 8.3-10.5 code = Calcium Level) Alk Phos (test code 65 U/L 35-104 = Alk Phos) Bilirubin Total 0.7 mg/dL 0.1-0.9 (test code = Bilirubin Total) Albumin Level (test 4.5 g/dL 3.5-5.2 code = Albumin Level) Protein Total (test 8.1 g/dL 6.4-8.3 code = Protein Total) ALT (test code = 13 U/L 1-33 ALT) AST (test code = 15 U/L 1-32 AST) Globulin (test code 3.6 g/dL 2.9-3.1 H = Globulin) A/G Ratio (test code 1.2 ratio N = A/G Ratio) eGFR AA (test code = >60 N eGFR (e stimated eGFR AA) mL/min/1.73 m2 Glomerular Filtration Rate ) is an estimated va lue, calculated from the patient's serum creatinine usin g the MDRD equation. It is NOT the patient 's actual GFR. The eGFR provides a more clinically usef ul measure of kidn ey disease than se rum creatinine alone.This calculation hyacinth es sex and race in to account, if the information is provided. If th e race is not provided, and t he patient is -Catina n, multiply by 1.2 12. If sex is not provided, and t he patient is fema le, multiply by 0.7 42. Results for pat ients <18 years of ag e have not been validated by th e MDRD study and should be interpreted wit h caution. eGFR R esult Interpretation: eGFR > or = 60 is in the Normal RangeeGF R < 60 may mean kid jas diseaseeGFR < 1 5 may mean kidney failure Rang es recommended by the National Kidney Foundation, http://nkdep.ni h.gov eGFR Non-AA (test >60.00 N eGFR (dana mated code = eGFR Non-AA) mL/min/1.73 m2 Glomer ular Filtration Rate ) is an estimated va lue, calculated from the patient's serum creatinine usin g the MDRD equation. It is NOT the patient 's actual GFR. The eGFR provides a more clinically usef ul measure of kidn ey disease than se rum creatinine alone.This calculation hyacinth es sex and race in to account, if the information is provided. If th e race is not provided, and t he patient is -Catina n, multiply by 1.2 12. If sex is not provided, and t he patient is fema le, multiply by 0.7 42. Results for pat ients <18 years of ag e have not been validated by th e MDRD study and should be interpreted wit h caution. eGFR R esult Interpretation: eGFR > or = 60 is in the Normal RangeeGF R < 60 may mean kid jas diseaseeGFR < 1 5 may mean kidney failure Rang es recommended by the National Kidney Foundation, http://nkdep.ni h.gov Comprehensive Metabolic [id number] 07:36:19 Test Item Value Reference Range Interpretation Comments Sodium Level (test 141.0 mmol/L 135.0-145.0 code = Sodium Level) Potassium Level 3.8 mmol/L 3.5-5.1 (test code = Potassium Level) Chloride Level (test 102 mmol/L 98-105 code = Chloride Level) CO2 (test code = 24 mmol/L 22-29 CO2) Anion Gap (test code 15 mmol/L 7-16 = Anion Gap) BUN (test code = 12.10 mg/dL 6.00-20.00 BUN) Creatinine Level 0.80 mg/dL 0.50-0.90 (test code = Creatinine Level) BUN/Creat Ratio 15 N (test code = BUN/Creat Ratio) Glucose Level (test 88 mg/dL 70-115 code = Glucose Level) Calcium Level (test 9.5 mg/dL 8.3-10.5 code = Calcium Level) Alk Phos (test code 65 U/L 35-104 = Alk Phos) Bilirubin Total 0.7 mg/dL 0.1-0.9 (test code = Bilirubin Total) Albumin Level (test 4.5 g/dL 3.5-5.2 code = Albumin Level) Protein Total (test 8.1 g/dL 6.4-8.3 code = Protein Total) ALT (test code = 13 U/L 1-33 ALT) AST (test code = 15 U/L 1-32 AST) Globulin (test code 3.6 g/dL 2.9-3.1 H = Globulin) A/G Ratio (test code 1.2 ratio N = A/G Ratio) eGFR AA (test code = >60 N eGFR (e stimated eGFR AA) mL/min/1.73 m2 Glomerular Filtration Rate ) is an estimated va lue, calculated from the patient's serum creatinine usin g the MDRD equation. It is NOT the patient 's actual GFR. The eGFR provides a more clinically usef ul measure of kidn ey disease than se rum creatinine alone.This calculation hyacinth es sex and race in to account, if the information is provided. If th e race is not provided, and t he patient is -Catina n, multiply by 1.2 12. If sex is not provided, and t he patient is fema le, multiply by 0.7 42. Results for pat ients <18 years of ag e have not been validated by [facility] MDRD study and should be interpreted wit h caution. eGFR R esult Interpretation: eGFR > or = 60 is in the Normal RangeeGF R < 60 may mean kid jas diseaseeGFR < 1 5 may mean kidney failure Rang es recommended by the National Kidney Foundation, http://nkdep.ni h.gov eGFR Non-AA (test >60.00 N eGFR (dana mated code = eGFR Non-AA) mL/min/1.73 m2 Glomer ular Filtration Rate ) is an estimated va lue, calculated from the patient's serum creatinine usin g the MDRD equation. It is NOT the patient 's actual GFR. The eGFR provides a more clinically usef ul measure of kidn ey disease than se rum creatinine alone.This calculation hyacinth es sex and race in to account, if the information is provided. If th e race is not provided, and t he patient is -Catina n, multiply by 1.2 12. If sex is not provided, and t he patient is fema le, multiply by 0.7 42. Results for pat ients <18 years of ag e have not been validated by [facility] MDRD study and should be interpreted wit h caution. eGFR R esult Interpretation: eGFR > or = 60 is in the Normal RangeeGF R < 60 may mean kid jas diseaseeGFR < 1 5 may mean kidney failure Rang es recommended by the National Kidney Foundation, http://nkdep.ni h.gov Lipid [id number] 07:36:13 Test Item Value Reference Range Interpretation Comments Cholesterol Total 104 mg/dL 0-200 RISK OF HE ART (test code = DISEASEPublishe d by Cholesterol Total) [employer] Lis lyte Optimal Borderl ine Increased RiskC HOL <200 200-239 >240TRI G <150 150-199 >200HDL Male >60 <40HDL Fema le >60 <50LDL <100 130 -159 >160LDL Near op timal is 100-129 Triglycerides (test 69 mg/dL 9-200 code = Triglycerides) HDL (test code = HDL) 40 mg/dL 50-60 L LDL (test code = LDL) 50 mg/dL 0-130 The eq uation being used in this calcula tion is LDL = (Chol - H DL) - (Trig / 5) VLDL (test code = 14 mg/dL 5-40 The equati on being used VLDL) in this calcula tion is VLDL = Trig / 5 Chol/HDL (test code = 2.6 ratio 0.0-4.4 Chol/HDL) LDL/HDL Ratio (test 1 N The equa tion being used code = LDL/HDL Ratio) in thi s calculation is LDL/HDL Ratio=L DL Calc/HDL Chol Complete Blood Count with [id number] 07:23:41 Test Item Value Reference Range Interpretation Comments WBC (test code = WBC) 11.1 x10 4.4-10.5 H RBC (test code = RBC) 5.08 x10 3.75-5.20 Hgb (test code = Hgb) 13.2 g/dL 12.2-14.8 MCV (test code = MCV) 79.90 fL 80.00-100.00 L Hct (test code = Hct) 40.6 % 36.5-44.4 MCHC (test code = 32.50 g/dL 32.00-37.50 MCHC) RDW CV (test code = 14.2 % 11.5-14.5 RDW CV) MCH (test code = MCH) 26.0 pg 27.0-32.5 L Platelets (test code = 361.0 x10 140.0-440.0 Platelets) MPV (test code = MPV) 10.3 fL N Slide Review (test Auto Auto Result cr eated by code = Slide Review) GL_SJM_ SLIDE_REV_AUTO nRBC (test code = 0 N nRBC) NRBC Abs (test code = 0.00 x10 N NRBC Abs) IPF (test code = IPF) 0 % N Automated [id number] 07:23:41 Test Item Value Reference Range Interpretation Comments Neutro Auto (test code = Neutro 57.1 % 36.0-70.0 Auto) Lymph Auto (test code = Lymph Auto) 32.3 % 12.0-44.0 Sanders Auto (test code = Sanders Auto) 8.9 % 0.0-11.0 Eos, Auto (test code = Eos, Auto) 0.9 % 0.0-7.0 Basophil Auto (test code = Basophil 0.3 % 0.0-2.0 Auto) Neutro Absolute (test code = Neutro 6.3 x10 1.6-7.4 Absolute) Lymph Absolute (test code = Lymph 3.58 x10 .50-4.60 Absolute) Sanders Absolute (test code = Sanders .99 x10 .00-1.20 Absolute) Eos Absolute (test code = Eos 0.10 x10 0.00-0.74 Absolute) Baso Absolute (test code = Baso 0.03 x10 0.00-0.21 Absolute) IG [id number] 07:23:41 Test Item Value Reference Range Interpretation Comments IG (test code = IG) 0.5 % 0.0-5.0 IG Abs (test code = IG Abs) 0 x10 N
--- NOTE | 2023-07-01 00:37 | ER ---
Nurse's Notes [facility] Name: Rebecca Kirby Age: 27 yrs Sex: Female : 1995 Arrival Date: 06/30/2023 Time: 23:49 Bed 1 Private MD: Diagnosis: Chest pain, unspecified;Dyspnea;37 weeks gestation of ;Essential (primary) hypertension Presentation: 06/30 23:58 Chief complaint: Patient states: dizziness SOB Chest tightness at 11 pm BP at home kl 177/100 [id number] 37 weeks gestation EDC 07/11/23. Coronavirus screen: Vaccine status: Patient reports being unvaccinated. Ebola Screen: Patient negative for fever greater than or equal to 101.5 degrees Fahrenheit, and additional compatible Ebola Virus Disease symptoms. Initial Sepsis Screen: Does the patient meet any 2 criteria? No. Patient's initial sepsis screen is negative. Does the patient have a suspected source of infection? No. Patient's initial sepsis screen is negative. Risk Assessment: Do you want to hurt yourself or someone else? Patient reports no desire to harm self or others. Onset of symptoms was June 30, 2023 at 23:00. 23:58 Method Of Arrival: Wheelchair kl 23:58 Acuity: TRAE 3 kl Triage Assessment: 07/01 00:01 General: Appears in no apparent distress. Behavior is cooperative. Pain: Denies pain. ASTROBIOLOGIST: 00:01 1, Full Term 0, Premature 0, 0, Living 0, LMP 10/10/2022, kl Verified, EDC 07/17/2023, Gestational age from LMP: 37 weeks 5 days 00:23 1, Full Term 0, Premature 0, 0, Living 1 eric Historical: - Allergies: 00:01 No Known Allergies; kl - PMHx: 00:01 PCOS; kl - Immunization history:: Adult Immunizations not immunized. - Social history:: Smoking status: Patient denies any tobacco usage or history of. - Family history:: not pertinent. Screenin:09 [facility] ED Fall Risk Assessment (Adult) History of falling in the last 3 months, ll3 including since admission No falls in past 3 months (0 pts) Confusion or Disorientation No (0 pts) Intoxicated or Sedated No (0 pts) Impaired Gait No (0 pts) Mobility Assist Device Used No (0 pt) Altered Elimination No (0 pt) Score/Fall Risk Level 0 - 2 = Low Risk Oriented to surroundings, Maintained a safe environment, Educated pt \T\ family on fall prevention, incl call for assistance when getting out of bed. Abuse screen: Denies threats or abuse. Denies injuries from another. Nutritional screening: No deficits noted. Tuberculosis screening: No symptoms or risk factors identified. Assessment: 00:08 General: Appears comfortable, Behavior is cooperative, anxious. Pain: Denies pain. ll3 Neuro: Level of Consciousness is awake, alert, obeys commands, Oriented to person, place, time, situation, Reports dizziness, since 2300. Cardiovascular: Reports shortness of breath, Chest pressure since 2300 Patient's skin is warm and dry. Respiratory: Reports shortness of breath Respiratory effort is even, unlabored, Respiratory pattern is regular, symmetrical. Derm: Skin is pink, warm \T\ dry. Vital Signs: 06/30 23:58 BP 165 / 88; Pulse 63; Resp 20; Pulse Ox 99% on R/A; kl 07/01 01:16 BP 161 / 94; Pulse 51; Resp 16; Pulse Ox 99% on R/A; ll3 01:40 BP 144 / 78; Pulse 59; Resp 16; Pulse Ox 100% on R/A; ll3 Vitals: 00:07 Heart Tones 138. ll3 ED Course: 06/30 23:52 Patient arrived in ED. ll3 23:57 Brandon Luong MD is Attending Physician. [facility] 07/01 00:01 Triage completed. 00:10 Patient has correct armband on for positive identification. Bed in low position. Call 3 light in reach. Side rails up X 1. Adult w/ patient. 00:53 US OB Limited In Process Unspecified. EDMS 01:08 Riley Rios, HANY is Primary Nurse. rv 02:19 No provider procedures requiring assistance completed. Patient transferred, IV remains ll3 in place. Administered Medications: 01:08 Drug: NS 0.9% IV 1000 ml Route: IV; Rate: 125 ml/hr; Site: right antecubital; rv 01:13 Drug: Labetalol IV 10 mg Route: IV; Rate: per protocol; Site: right antecubital; ll3 02:18 Follow up: Response: No adverse reaction; Blood pressure is lowered ll3 02:15 Drug: Magnesium Sulfate IVPB 2 grams Route: IVPB; Infused Over: 2 hrs; Site: right ll3 antecubital; 02:18 Not Given (Physician Discretion): Labetalol IV 20 mg IV at per protocol once over 2 ll3 mins; IF SYS PERSIST OVER 160, GOAL Medication: 00:10 VIS not applicable for this client. ll3 Outcome: 00:37 ER care complete, transfer ordered by MD. reyes 02:19 Transferred by ground EMS [facility] Transfer form completed. X-rays ll3 sent w/ patient. 02:19 Condition: stable 02:19 Discharge instructions given to patient, family, Instructed on the need for transfer, Demonstrated understanding of instructions. 02:20 Patient left the ED. ll3 Signatures: Dispatcher [employer] Bambi Hubbard, RN Brandon Beard MD MD cha Vicente, Ronaldo, RN RN rv Loubet, Lynsea, RN RN 3
--- NOTE | 2023-07-01 00:37 | EDPHYS ---
Physician Documentation [facility] Name: Rebecca Kirby Age: 27 yrs Sex: Female : 1995 Arrival Date: 06/30/2023 Time: 23:49 Bed 1 Private MD: ED Physician Brandon Luong HPI: 07/01 00:23 This 27 yrs old Female presents to ER via Wheelchair with complaints of cp, eric sob high bp. 00:23 The patient or guardian reports chest pain that is located primarily in the substernal eric area. The patient presents to the emergency department with possible uterine contractions, this morning. The estimated gestational age is 37 weeks. course: care: private OB physician, Dr. gu. Previous pregnancies: the patient has never been . Associated signs and symptoms: The patient has no apparent associated signs or symptoms. The pain does not radiate. The chest pain is described as a pressure. 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 - Social history:: Smoking status: Patient denies any tobacco usage or history of. - Family history:: not pertinent. ROS: 00:23 Constitutional: Negative for fever, chills, and weight loss, Eyes: Negative for injury, eric pain, redness, and discharge, ENT: Negative for injury, pain, and discharge, Neck: Negative for injury, pain, and swelling, Abdomen/GI: Negative for abdominal pain, nausea, vomiting, diarrhea, and constipation, Back: Negative for injury and pain, : Negative for injury, bleeding, discharge, and swelling, MS/Extremity: Negative for injury and deformity, Skin: Negative for injury, rash, and discoloration, Neuro: Negative for headache, weakness, numbness, tingling, and seizure, Psych: Negative for depression, anxiety, suicide ideation, homicidal ideation, and hallucinations, Allergy/Immunology: Negative for hives, rash, and allergies, Endocrine: Negative for neck swelling, polydipsia, polyuria, polyphagia, and marked weight changes, Hematologic/Lymphatic: Negative for swollen nodes, abnormal bleeding, and unusual bruising. 00:23 Cardiovascular: Positive for chest pain, of the chest. 00:23 Respiratory: Positive for shortness of breath, at rest. Exam: 00:23 Constitutional: This is a well developed, well nourished patient who is awake, alert, eric and in no acute distress. Head/Face: Normocephalic, atraumatic. Eyes: Pupils equal round and reactive to light, extra-ocular motions intact. Lids and lashes normal. Conjunctiva and sclera are non-icteric and not injected. Cornea within normal limits. Periorbital areas with no swelling, redness, or edema. ENT: Nares patent. No nasal discharge, no septal abnormalities noted. Tympanic membranes are normal and external auditory canals are clear. Oropharynx with no redness, swelling, or masses, exudates, or evidence of obstruction, uvula midline. Mucous membranes moist. Neck: Trachea midline, no thyromegaly or masses palpated, and no cervical lymphadenopathy. Supple, full range of motion without nuchal rigidity, or vertebral point tenderness. No Meningismus. Chest/axilla: Normal chest wall appearance and motion. Nontender with no deformity. No lesions are appreciated. Cardiovascular: Regular rate and rhythm with a normal S1 and S2. No gallops, murmurs, or rubs. Normal PMI, no JVD. No pulse deficits. Respiratory: Lungs have equal breath sounds bilaterally, clear to auscultation and percussion. No rales, rhonchi or wheezes noted. No increased work of breathing, no retractions or nasal flaring. Abdomen/GI: Soft, non-tender, with normal bowel sounds. No distension or tympany. No guarding or rebound. No evidence of tenderness throughout. Back: No spinal tenderness. No costovertebral tenderness. Full range of motion. Female : Normal external genitalia. Skin: Warm, dry with normal turgor. Normal color with no rashes, no lesions, and no evidence of cellulitis. MS/ Extremity: Pulses equal, no cyanosis. Neurovascular intact. Full, normal range of motion. Neuro: Awake and alert, GCS 15, oriented to person, place, time, and situation. Cranial nerves II-XII grossly intact. Motor strength 5/5 in all extremities. Sensory grossly intact. Cerebellar exam normal. Normal gait. Psych: Awake, alert, with orientation to person, place and time. Behavior, mood, and affect are within normal limits. 00:23 Abdomen/GI: Inspection: gravid appearance, is noted, Bowel sounds: normal, Palpation: abdomen is soft and non-tender, in all quadrants, Liver: no appreciated palpable abnormalities, Hernia: not appreciated. 01:26 ECG was reviewed by the Attending Physician. [facility] Vital Signs: 06/30 23:58 BP 165 / 88; Pulse 63; Resp 20; Pulse Ox 99% on R/A; kl 07/01 01:16 BP 161 / 94; Pulse 51; Resp 16; Pulse Ox 99% on R/A; ll3 01:40 BP 144 / 78; Pulse 59; Resp 16; Pulse Ox 100% on R/A; ll3 MDM: 06/30 23:57 Patient medically screened. [facility] 07/01 00:28 Differential diagnosis: abnormal EKG, acute myocardial infarction, acute pericarditis, eric anxiety, Cholelithiasis Mark deg[place], pneumonia, pneumothorax, pulmonary embolus, stable angina, unstable angina. HEART Score: History: Slightly Suspicious (0), ECG: Normal (0), Age: < or = 45 years (0), Risk Factors: No Risk Factors Known (0), Troponin: < or = 1 x Normal Limit (0). ALBARO Risk Score: TOTAL SCORE = 0. Data reviewed: vital signs, nurses notes, lab test result(s), EKG, radiologic studies, plain films. Consideration of Admission/Observation Escalation of care including admission/observation considered. I considered the following discharge prescriptions or medication management in the emergency department Medications were administered in the Emergency Department. See MAR. Independent interpretation of the following test(s) in the Emergency Department EKG: See my EKG interpretation above. Test considered but Not performed: CT: no ct chest. Historians other than the Patient: Spouse/Significant Other: . Care significantly affected by the following chronic conditions: Obesity, pcos. Counseling: I had a detailed discussion with the patient and/or guardian regarding: the historical points, exam findings, and any diagnostic results supporting the discharge/admit diagnosis. 07/01 00:11 Order name: CBC with Diff; Complete Time: 01:33 [facility] 07/01 00:11 Order name: Comprehensive Metabolic Panel [facility] 07/01 00:11 Order name: Urinalysis w/ reflexes [facility] 07/01 00:11 Order name: Troponin HS [facility] 07/01 00:13 Order name: US OB Limited [facility] 07/01 00:11 Order name: EKG; Complete Time: 00:12 [facility] 07/01 00:11 Order name: Oxygen: 2 liter; Complete Time: 01:08 [facility] 07/01 00:11 Order name: FHT's; Complete Time: 00:27 [facility] 07/01 00:11 Order name: EKG - Nurse/Tech; Complete Time: :18 [facility] EC: Rate is 53 beats/min. Rhythm is regular. QRS [place] is Normal. IA interval is normal. QRS eric interval is normal. No Q waves. T waves are Normal. No ST changes noted. Clinical impression: Sinus bradycardia and No evidence of ischemia. Interpreted by me. Reviewed by me. Administered Medications: :08 Drug: NS 0.9% IV 1000 ml Route: IV; Rate: 125 ml/hr; Site: right antecubital; rv 01:13 Drug: Labetalol IV 10 mg Route: IV; Rate: per protocol; Site: right antecubital; ll3 02:18 Follow up: Response: No adverse reaction; Blood pressure is lowered ll3 02:15 Drug: Magnesium Sulfate IVPB 2 grams Route: IVPB; Infused Over: 2 hrs; Site: right ll3 antecubital; 02:18 Not Given (Physician Discretion): Labetalol IV 20 mg IV at per protocol once over 2 ll3 mins; IF SYS PERSIST OVER 160, GOAL Disposition Summary: 07/01/23 00:37 Transfer Ordered Transfer Location: [facility] eric Reason: Higher level of care eric Condition: Stable reic Problem: new eric Symptoms: have improved eric Accepting Physician: to DR CHANG kitchen(07/01/23 02:20) ll3 Diagnosis - Chest pain, unspecified eric - Dyspnea eric - 37 weeks gestation of eric - Essential (primary) hypertension eric Forms: - Medication Reconciliation Form eric - SBAR form eric Signatures: Dispatcher [employer] Bambi Hubbard RN RN kl Anderson, Corey, MD MD cha Vicente, Ronaldo RN Reema Barboza RN RN ll3 Corrections: (The following items were deleted from the chart) 00:38 [facility] 00:38 00:38 to [facility] 02:20 00:[address] CHANG kitchen cha 3
[2023-07-01] MEDS ORDERED: NA CHLORIDE 0.9% 1,000 ML ONE (00:41)
[2023-07-01] MEDS ORDERED: LABETALOL 20 MG/4ML SYRINGE IV ONE (01:15)
[2023-07-01 01:29] LABS: Absolute Lymphocytes (CBC) 2.8 K/uL (0.7-4.9); Hematocrit 37.3 % (36.0-45.0); Lymphocytes % 24.3 % (15.3-44.8); MCV 77.8 fL (80-100); MPV 9.6 fL (7.6-11.3); Platelets 226 thou/uL (152-406); RBC Red Blood Cell Count 4.79 M/uL (3.86-4.86)
[2023-07-01 01:33] LABS: Specific Gravity 1.009 (1.005-1.030); Urine Bacteria None Seen /HPF (<20); Urine Bilirubin NEGATIVE (Negative); Urine Blood Negative (Negative); Urine Clarity Turbid (Clear); Urine Color Light-Yellow (Yellow); Urine Glucose NEGATIVE (Negative); Urine Protein NEGATIVE (Negative); Urine RBC <5 /HPF (None Seen); Urine Urobilinogen Normal (Normal); Urine pH 6.5 (5.0-7.0)
[2023-07-01 01:40] LABS: Albumin 2.7 g/dL (3.4-5.0); Bilirubin Total 0.2 mg/dL (0.2-1.0); Potassium 3.9 mEq/L (3.5-5.1); Protein, Total 7.5 g/dL (6.4-8.2); Troponin High Sensitivity 4.2 pg/mL (<58.9)
[2023-07-01] MEDS ORDERED: Magnesium Sulfate 2gm IVPB 2 G/50 ML BAG IV ONE (02:17)
[2023-07-01 02:30] VITALS: BP 144/78; O2SAT 100
--- NOTE | 2023-07-01 18:47 | RAD REPORT ---
EXAM DESCRIPTION: US - OB Limited - 07/01/2023 12:52 am CLINICAL HISTORY: ABD CRAMPING, TECHNIQUE: Real-time limited ultrasound of the maternal uterus with image documentation. COMPARISON: No relevant prior studies available. FINDINGS: Fetus: Single intrauterine gestation. Gestational age: Estimated gestational age is 36 weeks 5 days. TOÑO: Estimated date of delivery is 07/24/2023. AC: 32.87 cm, 36 weeks 5 days. FL: 7.22 cm, 36 weeks 6 days. Position: Cephalic presentation. Heart rate: cardiac activity measures 140 BPM. Amniotic fluid: Amniotic fluid index measures 12.3 cm. Cervix: The cervix measures 4 cm in length. IMPRESSION: 1. Single live intrauterine gestation. No focal complication. 2. Estimated gestational age by ultrasound is 36 weeks 5 days. 3. Estimated due date by ultrasound is 07/24/2023. Electronically signed by: Malena Abernathy MD 07/01/2023 2:08 AM CDT Due to temporary technical issues with the PACS/Fluency reporting system, reports are being signed by the in house radiologists without review as a courtesy to insure prompt reporting. The interpreting radiologist is fully responsible for the content of the report.
--- NOTE | 2023-07-03 15:34 | EKG ---
Test Date: 2023-07-01 Test Time: 01:16:09 Lead Radiation Therapist: ADDI MEASUREMENT RESULTS: Intervals: Rate: 53 NM: 130 QRSD: 84 QT: 420 QTc: 394 [place]: P: 53 NM: 130 QRS: 48 T: 34 INTERPRETIVE STATEMENTS: Sinus bradycardia Otherwise normal ECG Compared to ECG 05/20/2019 22:45:31 Sinus rhythm no longer present Electronically Signed On 07-03-23 15:31:08 CDT by Chuck Lawton
== END 2023-07-01 02:20 ==
LOC: ER 23:49
DX: O99.413 Diseases of the circulatory system complicating pregnancy, third trimester (principal); O16.3 Unspecified maternal hypertension, third trimester; Z3A.37 37 weeks gestation of pregnancy
CPT/HCPCS: 93005; 85025; 81001; 36415; 84484; 80053; 76815; 96375; 96374; 99285; J3475; J7030